=== PATIENT | male | born 1995 | race African-American/Black ===

== ENCOUNTER 2017-07-14 08:49 | Emergency (ER) | payer SELFPAY ==
[2017-07-14] MEDS ORDERED: Tetan/Diph/Pertus SYR(Tdap)* 0.5 ML SYR(BOOSTRIX) use SYR IM ONE (09:16)
--- NOTE | 2017-07-14 09:41 | RAD ---
HISTORY: Left foot problem, penetrating trauma, evaluate for foreign body COMPARISONS: None VIEWS: 2, Frontal and lateral views of the left foot FINDINGS: BONE DENSITY: Normal. BONES: There is no displaced fracture. JOINTS: There is no arthropathy. ALIGNMENT: There is no dislocation. SOFT TISSUES: Unremarkable. OTHER FINDINGS: There is no radiopaque foreign body. IMPRESSION: NO ACUTE OSSEOUS INJURY. NO RADIOPAQUE FOREIGN BODY. IF SYMPTOMS PERSIST, RECOMMEND REPEAT IMAGING.
[2017-07-14 10:05] VITALS: BP 135/70
--- NOTE | 2017-07-14 10:13 | ED ---
Lower Extremity - HPI Summary HPI Summary: Patient is a 21-year-old male presenting to the ED with the chief complaint of puncture wound to the left plantar surface of the foot. He states he jumped out of the shower yesterday and punctured the foot on either a nail or a wood piece. He is unsure if there remains a piece stuck inside the foot. There is erythema around the area and he is unable to ambulate. Denies any fevers, sweats, chills. - History of Current Complaint Chief Complaint: EDLacSutureRecheck Stated Complaint: LT FOOT PROBLEM Time Seen by Provider: 07/14/17 08:55 Hx Obtained From: Patient Onset of Pain: Hours Onset/Duration: Hours Severity Initially: Moderate Severity Currently: Moderate Pain Intensity: 4 Pain Scale Used: 0-10 Numeric Timing: Constant Character Of Pain: Aching Associated Signs And Symptoms: Positive: Redness - I, Aggravating Factor(s): Standing, Ambulation Alleviating Factor(s): Rest Able to Bear Weight: No - Risk Factors Gout Risk Factors: Negative DVT Risk Factors: Negative Septic Arthritis Risk Factor: Negative - Allergies/Home Medications Allergies/Adverse Reactions: Allergies Allergy/AdvReac Type Severity Reaction Status Date / Time No Known Allergies Allergy Verified 07/14/17 08:57 PMH/Surg Hx/FS Hx/Imm Hx Previously Healthy: Yes - Immunization History Hx Pertussis Vaccination: No Immunizations Up to Date: Unable to Obtain/Confirm Infectious Disease History: No Infectious Disease History: Denies: Traveled Outside the [place] in Last 30 Days - Social History Occupation: Unemployed Lives: With Family Alcohol Use: None Hx Substance Use: No Substance Use Type: Reports: None Hx Tobacco Use: Yes Smoking Status (MU): Heavy Every Day Tobacco Smoker Review of Systems Constitutional: Negative Negative: Fever, Chills, Fatigue, Skin Diaphoresis Eyes: Negative Cardiovascular: Negative Respiratory: Negative Genitourinary: Negative Positive: no symptoms reported, see HPI Positive: Other - R plantar surface foot pain Neurological: Negative All Other Systems Reviewed And Are Negative: Yes Physical Exam Triage Information Reviewed: Yes Vital Signs On Initial Exam: Initial Vitals Temp Pulse Resp BP Pulse Ox 98 F 70 16 124/77 98 07/14/17 08:58 07/14/17 08:58 07/14/17 08:58 07/14/17 08:58 07/14/17 08:58 Vital Signs Reviewed: Yes Appearance: Positive: Well-Appearing, Well-Nourished Skin: Positive: Warm, Skin Color Reflects Adequate Perfusion, Other - erythema Head/Face: Positive: Normal Head/Face Inspection Neck: Positive: Supple Respiratory/Lung Sounds: Positive: Clear to Auscultation, Breath Sounds Present Cardiovascular: Positive: RRR, Pulses are Symmetrical in both Upper and Lower Extremities Neurological: Positive: Sensory/Motor Intact, Alert, Oriented to Person Place, Time, Speech Normal Psychiatric: Positive: Normal, Affect/Mood Appropriate Diagnostics - Vital Signs Vital Signs Temp Pulse Resp BP Pulse Ox 07/14/17 10:04 98.5 F 59 16 135/70 99 07/14/17 08:58 98 F 70 16 124/77 98 - Laboratory Lab Statement: Any lab studies that have been ordered have been reviewed, and results considered in the medical decision making process. Lower Extremity Course/Dx - Course Course Of Treatment: During the course of treatment, the patient evaluated for possible foreign body into the plantar surface of the foot. X-ray obtained which is negative for foreign body. There is erythema around a puncture wound. This area is not draining or bleeding at this time. Due to the erythema and possible infection, will treat with Keflex 500 mg twice a day 5 days. Tetanus updated. - Diagnoses Provider Diagnoses: Puncture wound Discharge - Sign-Out/Discharge Documenting (check all that apply): Discharge/Admit/Transfer - Discharge Plan Condition: Stable Disposition: HOME Prescriptions: Cephalexin CAP* [Keflex CAP*] 500 mg PO BID #10 cap Patient Education Materials: Puncture Wound (ED) Referrals: No Primary Care Phys,NOPCP [Primary Care Provider] - Additional Instructions: Tetanus updated - this is good for 10 years Keflex twice daily x 5 days Keep the area clean and dry - Billing Disposition and Condition Condition: STABLE Disposition: HOME
== END 2017-07-14 10:04 | disposition home or self-care (01) ==
LOC: ED 08:49
DX: S91.312A Laceration without foreign body, left foot, initial encounter (principal); W45.8XXA Other foreign body or object entering through skin, initial encounter; Y92.9 Unspecified place or not applicable; Z72.0 Tobacco use
CPT/HCPCS: 90471; 90715; 99282

== ENCOUNTER 2019-04-16 18:03 | Emergency (ER) | payer SELFPAY ==
[2019-04-16] MEDS ORDERED: Clindamycin CAP* 150 MG PO ONE (19:06)
--- NOTE | 2019-04-16 19:12 | ED ---
Throat Pain/Nasal Congestion - HPI Summary HPI Summary: 23 year old M presenting to [facility] with a chief complaint of dental pain and jaw swelling. Patient also reports diaphoresis this morning. The patient rates the pain 6/10 in severity. Symptoms aggravated by nothing. Symptoms alleviated by nothing. Patient denies any fever or chills. Patient states that he has taken ibuprofen for his pain. Patient reports that he has an appointment for his dental pain on April 25, 2019. He denies any diagnosed medical problems or previous surgeries. He admits to drinking alcohol occasionally. He denies any recreational drug use. Medical list reviewed. Allergy list reviewed. Home Medications Medication Instructions Recorded Confirmed Type Cephalexin CAP* [Keflex CAP*] 500 mg PO BID #10 cap 07/14/17 Rx Clindamycin Cap(NF) [Clindamycin 300 mg PO Q6H 7 Days #28 cap 04/16/19 Rx Cap 300 mg Cap(NF)] traMADol TAB* [Ultram*] 50 mg PO Q6HR PRN #12 tab MDD 4 04/16/19 Rx tablets - History of Current Complaint Chief Complaint: EDDentalPain Time Seen by Provider: 04/16/19 18:33 Hx Obtained From: Patient Onset/Duration: Still Present Severity: Moderate Associated Signs And Symptoms: Positive: Negative - Fever, chills - Allergies/Home Medications Allergies/Adverse Reactions: Allergies Allergy/AdvReac Type Severity Reaction Status Date / Time No Known Allergies Allergy Verified 04/16/19 18:29 Home Medications: Home Medications Cephalexin CAP* [Keflex CAP*] 500 mg PO BID #10 cap 07/14/17 [Rx] Clindamycin Cap(NF) [Clindamycin Cap 300 mg Cap(NF)] 300 mg PO Q6H 7 Days #28 cap 04/16/19 [Rx] traMADol TAB* [Ultram*] 50 mg PO Q6HR PRN #12 tab MDD 4 tablets 04/16/19 [Rx] PMH/Surg Hx/FS Hx/Imm Hx Sensory History: Denies: Hx Deafness Opthamlomology History: Denies: Hx Legally Blind - Surgical History Surgical History: None Infectious Disease History: No Infectious Disease History: Denies: Traveled Outside the [place] in Last 30 Days - Family History Known Family History: Positive: Other Family History: Sister from pancreatitis. - Social History Alcohol Use: Occasionally Substance Use Type: Reports: Marijuana Hx Tobacco Use: Yes Smoking Status (MU): Current Every Day Smoker Review of Systems Positive: Skin Diaphoresis. Negative: Fever, Chills Positive: Dental Pain, Other - Jaw swelling All Other Systems Reviewed And Are Negative: Yes Physical Exam - Summary Physical Exam Summary: Constitutional: Well-developed, Well-nourished, Alert. (-) Distressed Skin: Warm, Dry HENT: Normocephalic; tooth number 21 with necrotic center, tender to palpation, small area of swelling under mandible, not extending midline, no sublingual swelling, no fluctuance. Eyes: Conjunctiva normal Neck: Musculoskeletal ROM normal neck. (-) JVD, (-) Stridor, (-) Tracheal deviation Cardio: Rhythm regular, rate normal, Heart sounds normal; Intact distal pulses; Radial pulses are 2+ and symmetric. (-) Murmur Pulmonary/Chest wall: Effort normal. (-) Respiratory distress, (-) Wheezes, (-) Rales Abd: Soft, (-) tenderness, (-) Distension, (-) Guarding, (-) Rebound Musculoskeletal: (-) Edema Lymph: (-) Cervical adenopathy Neuro: Alert, Oriented x3 Psych: Mood and affect Normal Triage Information Reviewed: Yes Vital Signs On Initial Exam: Initial Vitals Temp Pulse Resp BP Pulse Ox 98.9 F 67 16 142/54 98 04/16/19 18:25 04/16/19 18:25 04/16/19 18:25 04/16/19 18:25 04/16/19 18:25 Vital Signs Reviewed: Yes Procedures - Sedation Patient Received Moderate/Deep Sedation with Procedure: No Diagnostics - Vital Signs Vital Signs Temp Pulse Resp BP Pulse Ox 04/16/19 18:25 98.9 F 67 16 142/54 98 - Laboratory Lab Statement: Any lab studies that have been ordered have been reviewed, and results considered in the medical decision making process. EENT Course/Dx - Course Course Of Treatment: Patient is here with a dental infection. Patient has a also necrotic tooth with associated shortness swelling. Patient has no evidence of deep space neck infection or drainable abscess. Patient started on clindamycin. Patient will follow-up with his dentist appointment which is scheduled in 8 days - Diagnoses Provider Diagnoses: Toothache Discharge ED - Sign-Out/Discharge Documenting (check all that apply): Patient Departure - Discharge Plan Condition: Stable Disposition: HOME Prescriptions: Clindamycin Cap(NF) [Clindamycin Cap 300 mg Cap(NF)] 300 mg PO Q6H 7 Days #28 cap traMADol TAB* [Ultram*] 50 mg PO Q6HR PRN #12 tab MDD 4 tablets PRN Reason: Pain - Severe Patient Education Materials: Toothache (ED) Forms: *Work Release Referrals: [facility] [Outside] - 3 Days Additional Instructions: PLEASE FOLLOW UP WITH YOUR DENTIST. TAKE TYLENOL/MOTRIN FOR PAIN AND YOUR PRESCRIBED MEDICATIONS NEEDED. PLEASE RETURN TO ED FOR DIFFICULTY SWALLOWING OR OTHER CONCERNING SYMPTOMS. - Billing Disposition and Condition Condition: STABLE Disposition: Home - Attestation Statements Document Initiated by Scribe: Yes Documenting Scribe: Tierney Graham Provider For Whom Francoise is Documenting (Include Credential): Rene Orellana MD Scribe Attestation: Tierney Crum, scribed for Rene Orellana MD on at 2123. Scribe Documentation Reviewed: Yes Provider Attestation: The documentation as recorded by the sharleneibjosé luis, Tierney Graham accurately reflects the service I personally performed and the decisions made by , Rene Orellana MD Status of Scribe Document: Viewed
[2019-04-16 19:25] VITALS: BP 125/65
== END 2019-04-16 19:24 | disposition home or self-care (01) ==
LOC: ED 18:03
DX: K08.89 Other specified disorders of teeth and supporting structures (principal); F17.200 Nicotine dependence, unspecified, uncomplicated
CPT/HCPCS: 99282; A9270-GY